=== PATIENT | female | born 1995 | race African-American/Black ===

== ENCOUNTER 2017-01-23 23:39 | Emergency (ER) | payer OTHER ==
[~2017-01-23] VITALS: Ht 152.4 cm; Wt 76.1 kg
[~2017-01-23 23:39] MED LIST: PROV10TA PO
[2017-01-23 23:43] VITALS: BP 131/70; PULSE 70; RESP 18; TEMP 98.3; O2SAT 100
[2017-01-23 23:59] VITALS: BP 131/70; PULSE 70; RESP 18; TEMP 98.6; O2SAT 100
[2017-01-23] MEDS ORDERED: FERR1TAB58 PO (23:59)
--- NOTE | 2017-01-24 00:20 | PD ---
HPI Chief Complaint: Bleeding Time Seen by Provider: 00:12 Travel History International Travel<30 days: No Contact w/Intl Traveler<30days: No Traveled to known affect area: No History of Present Illness HPI 21 year-old female presents to the emergency department by private transportation for complaint of vaginal bleeding. Patient states she's had daily vaginal bleeding for 1-1/2 months. Patient states vaginal bleeding is heavy. Patient states she sometimes passes clots. Patient states she frequently changes the tampon with a panty liner every half hour. Patient's concerned that because of her work may be causing her to have increased bleeding. Patient states she's had irregular menses in the past. Patient states prior to this episode of vaginal bleeding she was without a period for 8 months. Prior to that she had very heavy bleeding and had been on control pills. Patient was stopped control pills is reportedly she wanted to become . Patient was seen by protocol officer approximately a year ago but has not seen anyone subsequently. During this recurrent bout of vaginal bleeding 6 weeks she has not made an appointment to see a protocol officer or been evaluated by a physician. Patient decided to come to the emergency room tonight because she is concerned this is interfering with her work. No report of fever chills nausea vomiting chest pain shortness of breath near syncope syncope or fatigue. No pelvic pain no abdominal pain. Also no dysuria frequency or urgency. PFSH Past Medical History Narrative Medical Anemia, dysfunctional uterine bleeding, diabetes, occasional alcohol use, no tobacco use; nursing notes reviewed Hx Anticoagulant Therapy: No Anemia: Yes Anxiety: Yes Cardiovascular Problems: No Chemotherapy: No Cerebrovascular Accident: No Diabetes: Yes Diminished Hearing: No Reproductive: Yes (CHRONIC MENORRHEA DISORDERS) Respiratory: No Immunizations Current: Yes ?: Not LMP: NOW : 0 Past Surgical History Hysterectomy: No Social History Alcohol Use: Yes (OCCAS. WINE) Tobacco Use: No (NEVER) Substance Use: No Allergies-Medications (Allergen,Severity, Reaction): Coded Allergies: Codeine (Verified Allergy, Intermediate, Rash, 01/23/17) Megace (Verified Adverse Reaction, Severe, ELEVATES BLOOD SUGAR, 01/23/17) Reported Meds & Prescriptions Reported Meds & Active Scripts Active Metformin (Metformin HCl) 500 Mg Tab 500 Mg PO BIDPC With meals Medroxyprogesterone Acetate 10 Mg Tab 10 Mg PO DAILY Start day 16 Reported Iron (Ferrous Sulfate) 50 Mg Tab 50 Mg PO DAILY Review of Systems Except as stated in HPI: all other systems reviewed are Neg General / Constitutional: No: Fever, Chills HENT: No: Congestion Cardiovascular: No: Chest Pain or Discomfort Respiratory: No: Shortness of Breath Gastrointestinal: No: Abdominal Pain Genitourinary: Positive: Menorrhagia, Vaginal Bleeding Skin: No Rash Neurologic: No: Weakness Endocrine: No: Polyuria, Polydipsia Hematologic/Lymphatic: No: Easy Bruising Physical Exam Narrative GENERAL: Well-developed well-nourished female in no acute distress no respiratory distress SKIN: Warm and dry. HEAD: Normocephalic. EYES: No scleral icterus. No injection or drainage. No conjunctival pallor. NECK: Supple, trachea midline. No JVD or lymphadenopathy. CARDIOVASCULAR: Regular rate and rhythm without murmurs, gallops, or rubs. RESPIRATORY: Breath sounds equal bilaterally. No accessory muscle use. GASTROINTESTINAL: Abdomen soft, non-tender, nondistended. Pelvic exam: Normal external exam no induration no erythema no lesions; speculum exam scant amount of blood without clots or tissue in the vaginal vault cervical os is closed; bimanual exam no adnexal mass or tenderness no uterine enlargement no cervical motion tenderness. MUSCULOSKELETAL: No cyanosis, or edema. BACK: Nontender without obvious deformity. No CVA tenderness. Data Data Last Documented VS Vital Signs Date Time Temp Pulse Resp B/P Pulse Ox O2 Delivery O2 Flow Rate FiO2 01/24/17 00:14 70 18 100 Room Air 01/23/17 23:59 98.6 131/70 Orders Ed Urine Pregnancytest Poc (01/24/17 00:12) Urinalysis - C+S If Indicated (01/24/17 00:12) Complete Blood Count With Diff (01/24/17 00:12) Labs Laboratory Tests Test 01/24/17 01/24/17 00:40 00:45 Urine Color YELLOW Urine Turbidity CLEAR Urine pH 5.5 Urine Specific [place] GREATER THAN 1.035 Urine Protein NEG mg/dL Urine Glucose (UA) 1000 OR GREATER mg/dL Urine Ketones NEG mg/dL Urine Occult Blood TRACE Urine Nitrite NEG Urine Bilirubin NEG Urine Leukocyte Esterase NEG Urine RBC 0-3 /hpf Urine Squamous Epithelial > 8 /hpf Cells Urine Mucus RARE /lpf Microscopic Urinalysis Comment CULT NOT INDICATED White Blood Count 10.4 TH/MM3 Red Blood Count 5.44 MIL/MM3 Hemoglobin 11.4 GM/DL Hematocrit 36.5 % Mean Corpuscular Volume 67.0 FL Mean Corpuscular Hemoglobin 20.9 PG Mean Corpuscular Hemoglobin 31.1 % Concent Red Cell Distribution Width 18.0 % Platelet Count 352 TH/MM3 Mean Platelet Volume 8.6 FL Neutrophils (%) (Auto) 63.7 % Lymphocytes (%) (Auto) 29.8 % Monocytes (%) (Auto) 3.7 % Eosinophils (%) (Auto) 2.3 % Basophils (%) (Auto) 0.5 % Neutrophils # (Auto) 6.6 TH/MM3 Lymphocytes # (Auto) 3.1 TH/MM3 Monocytes # (Auto) 0.4 TH/MM3 Eosinophils # (Auto) 0.2 TH/MM3 Basophils # (Auto) 0.1 TH/MM3 CBC Comment AUTO DIFF Differential Comment AUTO DIFF CONFIRMED Platelet Estimate NORMAL Platelet Morphology Comment NORMAL MDM Medical Decision Making Medical Screen Exam Complete: Yes Emergency Medical Condition: Yes Medical Record Reviewed: Yes Interpretation(s) POC hcg: negative Differential Diagnosis Dysfunctional uterine bleeding, anemia, Narrative Course Urinalysis [id number] and CBC specimens collected Patient appears very stable and extensive discussion conducted with patient regarding need for follow-up with protocol officer. Review of medical records indicates patient was actually here in September 2016 just 4 months ago for same complaint at that time was placed on a 10 day course of Provera. No follow-up with protocol officer after September visit. Patient does report needs a metformin refill 500 mg twice daily has been on 1000 mg twice daily before but because of intolerance to the medication has not been taking and and is monitoring her blood sugars at home. Patient does acknowledge that she was in the emergency department in September that she had good control of her abnormal vaginal bleeding after a short course of Provera and is requesting that she be allowed a second course with this medication as she has not yet established with a primary care or protocol officer although she is in the process of doing so now that she has access to insurance. Patient bedside glucose 304, dose regular insulin administered. Diagnosis Primary Impression: Vaginal bleeding Additional Impression: Diabetes mellitus Referrals: [facility] call for appointment Patient Instructions: General Instructions, Hypoglycemia in a Person with Diabetes (ED), Type 2 Diabetes in Adults (ED) Additional Instructions: Follow-up with primary care provider Follow-up with protocol officer Follow the [employer] diet Med/Other Pt SpecificInfo: Prescription(s) given Scripts Metformin 500 Mg [id number] Mg PO BIDPC #30 TAB Ref 0 With meals Prov:Beryl Ernst MD 01/24/17 Medroxyprogesterone Acetate 10 Mg Tab10 Mg PO DAILY #10 TAB Ref 0 Start day 16 Prov:Beryl Ernst MD 01/24/17 Disposition: 01 DISCHARGE HOME Condition: Stable Beryl Ernst MD Jan 24, 2017 00:19
[2017-01-24 00:55] LABS: BLOOD, URINE TRACE (NEG); KETONE, URINE NEG (NEG); NITRITE,URINE NEG (NEG); PH, URINE 5.5 (5.0-8.5)
[2017-01-24 01:00] LABS: AUTOMATED NEUTROPHIL # 6.6 TH/MM3 (1.8-7.7); BASOPHIL # 0.1 TH/MM3 (0-0.2); BASOPHIL % 0.5 % (0.0-2.0); EOSINOPHIL # 0.2 TH/MM3 (0-0.4); EOSINOPHIL % 2.3 % (0.0-4.0); HEMATOCRIT 36.5 % (35.0-46.0); LYMPH % 29.8 % (9.0-44.0); LYMPHOCYTE # 3.1 TH/MM3 (1.0-4.8); MEAN CORPUSCULAR HEMOGLOBIN 20.9 PG (27.0-34.0); MEAN CORPUSCULAR HGB CONC 31.1 % (32.0-36.0); MONO % 3.7 % (0.0-8.0); NEUT % 63.7 % (16.0-70.0); PLATELET COUNT 352 TH/MM3 (150-450); RED BLOOD COUNT 5.44 MIL/MM3 (4.00-5.30); WHITE BLOOD COUNT 10.4 TH/MM3 (4.0-11.0)
[2017-01-24 01:00] LABS: GLUCOSE,URINE 1000 OR GREATER mg/dL (NEG)
[2017-01-24 01:04] LABS: URINE COLOR YELLOW (YELLW/STRAW)
[2017-01-24 01:06] LABS: COMMENT (UR) CULT NOT INDICATED; CULTURE IF INDICATED CULT NOT INDICATED; RBC, URINE 0-3 /hpf (0-3); SQUAMOUS EPITHELIAL CELL URINE > 8 /hpf (0-5)
[2017-01-24 01:07] LABS: MUCUS URINE RARE /lpf (OCC)
[2017-01-24 01:08] LABS: HEMO FLAGS AUTO DIFF
[2017-01-24 01:33] LABS: PLATELET ESTIMATE SMEAR NORMAL (NORMAL); PLATELET MORPHOLOGY NORMAL (NORMAL); SCAN/DIFF AUTO DIFF CONFIRMED
[2017-01-24] MEDS ORDERED: MEDR10TA7 PO (01:34)
[2017-01-24] MEDS ORDERED: METF500T PO (01:34)
[2017-01-24 01:36] VITALS: BP 130/67; PULSE 70; RESP 18; O2SAT 100
[2017-01-24] MEDS ORDERED: INSULIN HUMAN REGULAR 1,000 UNITS/10 ML VIAL SQ ONE (01:45)
== END 2017-01-24 01:56 | disposition home or self-care (01) ==
LOC: PHED 23:39
DX: N93.9 Abnormal uterine and vaginal bleeding, unspecified (principal); E11.65 Type 2 diabetes mellitus with hyperglycemia; D64.9 Anemia, unspecified; N93.8 Other specified abnormal uterine and vaginal bleeding
CPT/HCPCS: 81001; 84703; 85025; 96372; 99284; J1815

== ENCOUNTER 2017-08-06 15:49 | Emergency (ER) | payer SELFPAY ==
[~2017-08-06] VITALS: Ht 154.9 cm; Wt 76.2 kg
[~2017-08-06 15:49] MED LIST changes: +FERR1TAB58 PO; +MEDR10TA7 PO; +METF500T PO; -PROV10TA PO
[2017-08-06 15:59] VITALS: BP 148/78; PULSE 99; RESP 16; TEMP 98.6; O2SAT 98
[2017-08-06] MEDS ORDERED: ACYC800T PO (16:57)
[2017-08-06] MEDS ORDERED: MEDI220T PO (16:57)
--- NOTE | 2017-08-06 16:57 | PD ---
HPI . Vaginal irritation Chief Complaint: Skin Problem Time Seen by Provider: 16:20 Travel History International Travel<30 days: No Contact w/Intl Traveler<30days: No Traveled to known affect area: No History of Present Illness HPI 21-year-old female presents to emergency room for evaluation of a vaginal irritation and rash 2 days. Patient associated the rash with using mcelroy butter wipes. The patient denies any systemic complaints such as fever, chills , chest pain, shortness breath, nausea, vomiting, diarrhea. Patient states her last period was on the of this month. Patient denies any chance of stating she is a lesbian. Patient has been the same woman for 5 years and denies any new sexual partners. Patient has been trying to use hydrocortisone cream with no relief. The rash is mildly burning but not associated with any discharge, pain, pelvic pain or vaginal bleeding. Patient denies any history of STDs. Patient states this happened to her in 2011 due to shaving cream and she reported to the emergency department and was treated with a cream due to an allergic reaction. PFSH Past Medical History Hx Anticoagulant Therapy: No Anemia: Yes Anxiety: Yes Cardiovascular Problems: No Chemotherapy: No Cerebrovascular Accident: No Diabetes: Yes Patient Takes Glucophage: No Diminished Hearing: No Reproductive: Yes (CHRONIC MENORRHEA DISORDERS) Respiratory: No Immunizations Current: Yes Tetanus Vaccination: > 5 Years Influenza Vaccination: No ?: Not LMP: 07/28/17 : 0 Past Surgical History Surgical History: No Previous Surgery Hysterectomy: No Social History Alcohol Use: Yes (OCCAS. WINE) Tobacco Use: No (NEVER) Substance Use: No Allergies-Medications (Allergen,Severity, Reaction): Coded Allergies: codeine (Unverified Allergy, Intermediate, Rash, 08/06/17) megestrol (Unverified Adverse Reaction, Severe, ELEVATES BLOOD SUGAR, ) Reported Meds & Prescriptions Reported Meds & Active Scripts Active Naproxen Sodium 220 Mg Tab 440 Mg PO BID PRN 7 Days Acyclovir 800 Mg Tab 800 Mg PO 5 TIMES A DAY 7 Days Review of Systems Except as stated in HPI: all other systems reviewed are Neg Physical Exam Narrative GENERAL: Well-nourished, well-developed 21-year-old female patient. No acute distress noted. Nontoxic-appearing. SKIN: Focused skin assessment warm/dry. HEAD: Normocephalic. Atraumatic.. NECK: Supple, trachea midline. No JVD or lymphadenopathy. CARDIOVASCULAR: Regular rate and rhythm without murmurs, gallops, or rubs. RESPIRATORY: Breath sounds equal bilaterally. No accessory muscle use. GASTROINTESTINAL: Abdomen soft, non-tender, nondistended. GENITOURINARY: Normal external genitalia with multiple ulcerative lesions to inferior labia minora and labia majora and peritoneal area that is consistent with genital herpes. No dysuria, no frequency, vaginal discharge or bleeding. Data Data Last Documented VS Vital Signs Date Time Temp Pulse Resp B/P (MAP) Pulse Ox O2 Delivery O2 Flow Rate FiO2 08/06/17 15:59 98.6 99 16 148/78 (101) 98 Orders Orders Ed Discharge Order (08/06/17 16:58) [facility] Medical Decision Making Medical Screen Exam Complete: Yes Emergency Medical Condition: Yes Differential Diagnosis Differential diagnoses include but not limited to contact dermatitis, genital herpes, vaginitis Narrative Course 21-year-old female presents emergency department for evaluation of vaginal irritation 2 days. Patient denies any fevers, chills, shortness breath, chest pain, abdominal pain, nausea, vomiting or diarrhea. Patient states that this happened her 2011 due to shaving gel and she reported the emergency department and believe she was treated with a cream and the problem resolved. During the physical exam I explained that the appearance is consistent with herpes. Patient denied any pain to the area and stated that when this happened before whenever they gave her work to resolve the problem and she had been tested for STDs and everything was negative. I was able to pull the documentation from her [address] Colindres examined the patient and believed exam to be consistent with herpes as well. He cultured the lesions and it came back positive for herpes. I went back and explained to the patient the documentation was a multiple along with the microbiology report and the patient stated that she had been tested subsequent to that test and it was negative and none of her partners without any problems. The patient was educated on the nature of herpes having flareups. Patient was visibly upset and asked if she could've contracted genital herpes during childbirth when she was born. Patient was instructed to follow up with her primary care, health clinic or remote broadcast engineer regarding her pre-existing diagnosis. Patient states she understands and will take her antiviral medication despite her still denying any chance that she could have an STD. She did take the same antiviral medication when she was initially diagnosed in 2011. Patient was discharged home with acyclovir and naproxen. Patient visibly anxious and upset about her diagnosis. Diagnosis Primary Impression: Genital herpes Qualified Codes: A60.04 - Herpesviral vulvovaginitis Referrals: Primary Care Physician Patient Instructions: General Instructions, Genital Herpes Simplex (ED) Additional Instructions: Use [id number] cortisone cream and/or oral antihistamines for relief of burning and/or itching. Also avoid known irritants. Please return to emergency department if your symptoms return or worsen. Follow up with your primary care provider. Take medications as prescribed. Med/Other Pt SpecificInfo: Prescription(s) given Scripts Naproxen Sodium (Naproxen Sodium) 220 Mg Tab 440 MG PO BID Y for Pain Management for 7 Days, #28 TAB 0 Refills Prov: Katya Villalobos 08/06/17 Acyclovir (Acyclovir) 800 Mg Tab 800 MG PO 5 TIMES A DAY for Mgmt Viral Infection for 7 Days, TAB 0 Refills Prov: Katya Villalobos 08/06/17 Disposition: 01 DISCHARGE HOME Condition: Stable Katya Villalobos Aug 06, 2017 16:57
== END 2017-08-06 17:12 | disposition home or self-care (01) ==
LOC: PHED 15:49
DX: A60.04 Herpesviral vulvovaginitis (principal); D64.9 Anemia, unspecified; F41.9 Anxiety disorder, unspecified; E11.9 Type 2 diabetes mellitus without complications; Z79.899 Other long term (current) drug therapy
CPT/HCPCS: 99284